=== PATIENT | female | born 2000 | race Caucasian/White ===

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

== ENCOUNTER 2023-04-13 11:14 | Emergency (ER) | payer OTHER ==
[~2023-04-13] VITALS: Ht 160 cm; Wt 113.4 kg
[2023-04-13 11:21] VITALS: BP 134/85
[2023-04-13 11:41] LABS: BILIRUBIN Negative (Negative); BLOOD Negative (Negative); CLARITY Clear (Clear); COLOR Yellow (Yellow); GLUCOSE Negative (Negative); KETONE Negative (Negative); LEUKO ESTERASE Trace (Negative); NITRITE Negative (Negative); PH 7.5 (4.5-8.0); UROBILINOGEN 0.2 E.U./dl (0.0-1.0)
[2023-04-13 11:55] LABS: BACTERIA TRACE; RBC 0-2 rbc/hpf (0-2)
== END 2023-04-13 13:11 | disposition home or self-care (01) ==
LOC: ED 11:14
PROVIDERS: Nurse Practitioner Family
DX: Z32.01 Encounter for pregnancy test, result positive (principal); Z88.8 Allergy status to other drugs, medicaments and biological substances; Z79.899 Other long term (current) drug therapy

== ENCOUNTER 2023-09-02 13:20 | Emergency (ER) | payer OTHER ==
[~2023-09-02] VITALS: Ht 160 cm; Wt 1138.5 kg
[2023-09-02 13:39] VITALS: BP 142/91
== END 2023-09-02 15:48 | disposition home or self-care (01) ==
LOC: ED 13:20
DX: U07.1 COVID-19 (principal); Z88.0 Allergy status to penicillin